=== PATIENT | female | born 1965 | race Caucasian/White ===

== ENCOUNTER 2018-03-12 07:06 | Day surgery (SDC) | payer BC ==
[~2018-03-12 07:06] MED LIST: LACTATED RINGER'S 1,000 ML IV; SOD CHLORIDE 0.9% 1,000 ML IV
[2018-03-12] MEDS ORDERED: MIDAZOLAM 1 MG/ML 2 ML INJ (09:29)
[2018-03-12] MEDS ORDERED: FENTAnyl 50 MCG/ML VIAL (09:29)
[2018-03-12] MEDS ORDERED: ONDANSETRON 4 MG INJ (10:02)
[2018-03-12] MEDS ORDERED: CEFAZOLIN 1 GM INJ (10:03)
[2018-03-12] MEDS ORDERED: LIDOCAINE 2% (SDV) 5 ML INJ (10:03)
[2018-03-12] MEDS ORDERED: PROPOFOL 20 ML (10:03)
[2018-03-12] MEDS ORDERED: LABETALOL HCL 20MG INJ IV (10:30)
[2018-03-12] MEDS ORDERED: hydrALAzine 20 MG INJ IV (10:30)
[2018-03-12] MEDS ORDERED: DIPHENHYDRAMINE 50 MG INJ IV (10:30)
[2018-03-12] MEDS ORDERED: MEPERIDINE 25 MG INJ IV (10:30)
[2018-03-12] MEDS ORDERED: HYDROmorphONE 1 MG/5 ML IV SYRINGE IV ×2 (10:30)
[2018-03-12] MEDS ORDERED: ONDANSETRON 4 MG INJ IV (10:30)
[2018-03-12] MEDS ORDERED: METOCLOPRAMIDE 10 MG INJ IV (10:30)
[2018-03-12] MEDS ORDERED: FENTAnyl 50 MCG/ML VIAL IV (10:30)
[2018-03-12] MEDS ORDERED: OXYCODONE/ACETAMINOPHEN (5/325) TAB PO ×2 (11:30)
== END 2018-03-12 12:20 | disposition home or self-care (01) ==
LOC: SDS 07:06
DX: M65.312 Trigger thumb, left thumb (principal)
CPT/HCPCS: 26055; 84703